=== PATIENT | male | born 1935 | race Caucasian/White ===

== ENCOUNTER 2018-04-25 21:20 | Emergency (ER) | payer OTHER ==
--- NOTE | 2018-04-25 21:27 | PDOC ---
History of Present Illness - History of Present Illness Initial Comments: 04/25/18 22:06 The patient is a 83 year old male presents to the emergency department with urinary retention. The patient reports he underwent cardiac ablation at [facility] yesterday, for which he was placed a urinary catheter. The patient reports the thacker was removed earlier today, and since then he hasnt urinated. Denies back pain. PAST MEDICAL HISTORY: Green laser surgery for prostatic hypertrophy, Cardiac ablation (2 days ago), DM, Afib/flutter (prior to ablation procedure) PAST SURGICAL HISTORY: Laser surgery and cardiac ablation. FAMILY HISTORY: no pertinent history SOCIAL HISTORY: Pt lives with family and is employed. MEDICATIONS: reviewed ALLERGIES: As per nursing notes General: No fevers or chills, no weakness, no weight loss HEENT: No change in vision. No sore throat,. No ear pain CardioVascular: No chest pain or shortness of breath Respiratory:No cough, or wheezing. Gastrointestinal: no nausea, vomiting, diarrhea or constipation, No rectal bleeding Genitourinary: +urinary retention. No dysuria, hematuria, or frequency Musculoskeletal: No joint or muscle pain or swelling Neurologic: No headache, vertigo, dizziness or loss of consciousness Psychiatric: nor depression Skin: No rashes or easy bruising Endocrine: no increased thirst or abnormal weight change Allergic: no skin or latex allergy All other systems reviewed and normal GENERAL: The patient is awake, alert, and fully oriented, in no acute distress. HEAD: Normal with no signs of trauma. EYES: Pupils equal, round and reactive to light, extraocular movements intact, sclera anicteric, conjunctiva clear. ABD: No CVA or Flank tenderness. EXTREMITIES: Normal range of motion, no edema. NEUROLOGICAL: Normal speech, normal gait. PSYCH: Normal mood, normal affect. SKIN: Warm, Dry, normal turgor, no rashes or lesions noted. Documentation prepared by Evangelina Dickerson, acting as director biomedical engineering for Marcelino Joshi MD. <Evangelina Dickerson - Last Filed: 04/25/18 22:06> - General History Source: Patient Exam Limitations: No Limitations - History of Present Illness Initial Comments: A portion of this note was documented by scribe services under my direction. I have reviewed the details of the note, within reason, and agree with the documentation with the following case summary and management plan written by me. Patient treated in the ED. Nursing notes are reviewed and incorporated into the medical decision-making. Vital signs reviewed. Assessment and plan: This is an 83-year-old male who comes in complaining of urinary retention. Patient had a cardiac ablation yesterday and had a Thacker overnight Thacker was removed this morning the patient did not P before going home and patient is been unable to eat since the Thacker was removed. A Thacker was placed with return of 600 mL of urine patient started on Cipro and well hollow up with his doctor on Friday. Patient discharged home with a leg bag 04/25/18 22:23 <Marcelino Joshi I - Last Filed: 04/25/18 22:24> - General Chief Complaint: Urinary Problem Stated Complaint: URINARY RETENTION Time Seen by Provider: 04/25/18 21:24 Past History <Evangelina Dickerson - Last Filed: 04/25/18 22:06> - Past Medical History Cardiac Disorders: Yes (A-FIB) Diabetes: Yes (NIDDM) Disorders: Yes (BPH) Hypercholesterolemia: Yes - Surgical History Cardiac Surgery: Yes (CARDIAC ABLATION JAN 2106) - Suicide/Smoking/Psychosocial Hx Smoking Status: No Smoking History: Never smoked Number of Cigarettes Smoked Daily: 0 Hx Alcohol Use: No Drug/Substance Use Hx: No Substance Use Type: None <Marcelino Joshi I - Last Filed: 04/25/18 22:24> - Past Medical History Allergies/Adverse Reactions: Allergies Allergy/AdvReac Type Severity Reaction Status Date / Time No Known Allergies Allergy Verified 07/13/11 19:51 Home Medications: Ambulatory Orders Glipizide [Glucotrol] 10 mg PO BID 07/13/11 Metformin HCl 1,000 mg PO BID 07/13/11 Atorvastatin Ca [Lipitor] 10 mg PO HS 01/27/16 Cholecalciferol (Vitamin D3) [Vitamin D3 -] 1,000 unit PO DAILY 01/27/16 Cyanocobalamin [Vitamin B12 -] 1,000 mcg PO DAILY 01/27/16 Metoprolol Succinate [Toprol Xl -] 25 mg PO DAILY 01/27/16 Rivaroxaban [Xarelto -] 20 mg PO DAILY 01/27/16 Ciprofloxacin HCl [Cipro] 500 mg PO BID #10 tablet 04/25/18 Insulin Detemir [Levemir Flextouch] 8 unit SQ HS 04/25/18 *Physical Exam - Vital Signs Last Vital Signs Temp Pulse Resp BP Pulse Ox 98.3 F 104 H 20 127/76 100 04/25/18 21:26 04/25/18 21:26 04/25/18 21:26 04/25/18 21:26 04/25/18 21:26 <Evangelina Dickerson - Last Filed: 04/25/18 22:06> Moderate Sedation - Procedure Monitoring Vital Signs: Procedure Monitoring Vital Signs Temperature 98.3 F 04/25/18 21:26 Pulse Rate 104 H 04/25/18 21:26 Respiratory Rate 20 04/25/18 21:26 Blood Pressure 127/76 04/25/18 21:26 O2 Sat by Pulse Oximetry (%) 100 04/25/18 21:26 <Evangelina Dickerson - Last Filed: 04/25/18 22:06> *DC/Admit/Observation/Transfer <Evangelina Dickerson - Last Filed: 04/25/18 22:06> - Discharge Dispostion Decision to Admit order: No <Marcelino Joshi I - Last Filed: 04/25/18 22:24> Diagnosis at time of Disposition: Urinary retention - Discharge Dispostion Disposition: HOME Condition at time of disposition: Stable - Prescriptions Prescriptions: Ciprofloxacin HCl [Cipro] 500 mg PO BID #10 tablet - Patient Instructions Printed Discharge Instructions: How to Care for Your Thacker Catheter -- Male Additional Instructions: Wear the leg bag until you see your doctor on Friday follow-up with your doctor on Friday. Take Cipro 1 tablet twice a day for 5 days to prevent or treat any urinary tract infection. Return to the emergency department immediately with ANY new, persistent or worsening symptoms. Continue any medications as previously prescribed by your physician. You should follow up with your primary doctor as soon as possible regarding today's emergency department visit. . Please make sure your doctor reviews the results of your emergency evaluation. Thank you for coming to the Emergency Department today for your care. It was a pleasure to see you today. Please note that your evaluation is INCOMPLETE until you follow-up with your doctor.
[2018-04-25 21:29] VITALS: BP 127/76; PULSE 104; TEMP 98.3; BMI 25.7
[2018-04-25] MEDS ORDERED: CIPROFLOXACIN 500 MG TABLET (RESTRICTED TO ID) PO ONE (22:03)
[2018-04-25 22:07] LABS: PH,URINE 5.5 (4.5-8); URINE APPEARANCE Clear; URINE BILIRUBIN Negative (NEGATIVE); URINE COLOR Yellow; URINE GLUCOSE (UA) 2+ (NEGATIVE); URINE KETONE Trace (NEGATIVE); URINE LEUK ESTERASE Negative (NEGATIVE); URINE NITRITE Negative (NEGATIVE); URINE PROTEIN 1+ (NEGATIVE); URINE UROBILINOGEN 0.2 (0.2-1.0)
[2018-04-25] MEDS ORDERED: CIPROFLOXACIN 250 MG TABLET (RESTRICTED TO ID) PO ONE (22:08)
[2018-04-25 22:24] LABS: URINE BACTERIA 2+ /hpf (NEGATIVE); URINE RBC >100 /hpf (0-3)
== END 2018-04-25 22:12 | disposition home or self-care (01) ==
LOC: FER 21:20
PROC: 0T9B70Z Drainage of Bladder with Drainage Device, Via Natural or Artificial Opening (ICD-10-PCS; principal; 2018-04-25)
DX: R33.9 Retention of urine, unspecified (principal); I48.91 Unspecified atrial fibrillation; E11.9 Type 2 diabetes mellitus without complications; N40.0 Benign prostatic hyperplasia without lower urinary tract symptoms; E78.00 Pure hypercholesterolemia, unspecified
CPT/HCPCS: 81003; 81015; 87086; 87186; 99282-25

== ENCOUNTER 2018-04-28 05:48 | Emergency (ER) | payer OTHER ==
--- NOTE | 2018-04-28 05:51 | PDOC ---
History of Present Illness - General Chief Complaint: Urinary Problem Stated Complaint: URINARY RETENTION Time Seen by Provider: 04/28/18 05:51 - History of Present Illness Initial Comments: 04/28/18 06:24 This 83-year-old man with a history of A. fib/HLD/DM/prostatic hypertrophy presents with recurrent urinary retention. Patient had a cardiac ablation procedure on 04/24. He presented to the ER here with urinary retention following day and catheter was placed. He was seen in his urologist's office yesterday and catheter was removed. The patient states that he subsequently urinated a small amount in the afternoon (a little over 12 hours prior to presentation now) , but had not urinated since then. Patient has had progressive discomfort through the night. No history of hematuria/fever/vomiting. Past History - Past Medical History Allergies/Adverse Reactions: Allergies Allergy/AdvReac Type Severity Reaction Status Date / Time No Known Allergies Allergy Verified 04/28/18 05:49 Home Medications: Ambulatory Orders Glipizide [Glucotrol] 10 mg PO BID 07/13/11 Metformin HCl 1,000 mg PO BID 07/13/11 Atorvastatin Ca [Lipitor] 10 mg PO HS 01/27/16 Cholecalciferol (Vitamin D3) [Vitamin D3 -] 1,000 unit PO DAILY 01/27/16 Cyanocobalamin [Vitamin B12 -] 1,000 mcg PO DAILY 01/27/16 Metoprolol Succinate [Toprol Xl -] 25 mg PO DAILY 01/27/16 Rivaroxaban [Xarelto -] 20 mg PO DAILY 01/27/16 Ciprofloxacin HCl [Cipro] 500 mg PO BID #10 tablet 04/25/18 Insulin Detemir [Levemir Flextouch] 8 unit SQ HS 04/25/18 Cardiac Disorders: Yes (A-FIB) COPD: No Diabetes: Yes (NIDDM) Disorders: Yes (BPH) Hypercholesterolemia: Yes - Surgical History Cardiac Surgery: Yes (CARDIAC ABLATION JAN 2106) - Suicide/Smoking/Psychosocial Hx Smoking Status: No Smoking History: Never smoked Have you smoked in the past 12 months: No Number of Cigarettes Smoked Daily: 0 Hx Alcohol Use: No Drug/Substance Use Hx: No Substance Use Type: None Review of Systems - Review of Systems Able to Perform ROS?: Yes Comments:: 12 point review of systems is negative except for what is noted in the history of present illness *Physical Exam - Physical Exam Comments: GENERAL: Elderly man, alert and oriented 3, in mild distress secondary to lower abdominal distention HEAD: Normal with no signs of trauma. EYES: PERRLA, EOMI, sclera anicteric, conjunctiva clear. ABDOMEN:.normal bowel sounds. Moderate lower abdominal distention No guarding or rebound.No masses EXTREMITIES: Normal range of motion, no edema. No clubbing or cyanosis. No erythema, or tenderness. NEUROLOGICAL: Cranial nerves II through XII grossly intact. Normal speech. No focal neurological deficits. MUSCULOSKELETAL: Back non-tender to palpation, no CVA tenderness SKIN: Warm, Dry, normal turgor, no rashes or lesions noted. Progress Note - Progress Note Progress Note: Under sterile technique,16F thacker urinary catheter was placed by the nursing staff with subsequent free flow of clear, arias urine( total amount drained = 600ml). Patient reports marked relief in his symptoms after drainage of urine. Urine sample sent for culture and sensitivity. Repeat heart rate measured:120/min. Patient denies chest pain/shortness of breath/lightheadedness. Patient will be discharged with instructions to follow-up with his urologist today(to call the office to arrange appointment for removal of catheter). He also should call his under baster to arrange follow-up. After the cardiac ablation procedure (which was performed because patient's resting heart rate was 120s/minute), follow-up was scheduled for May 18. Patient should inform his under baster about tachycardia today. It was explained to the patient that he had some physiologic reasons for tachycardia such as urinary retention and the insertion of the catheter. However, his under baster may want to see him sooner than 3 weeks from now. The patient will be called if urine sample is positive for UTI Meanwhile, patient should return to the emergency room if he develops abdominal pain/fever/vomiting. *DC/Admit/Observation/Transfer Diagnosis at time of Disposition: Urinary retention - Discharge Dispostion Disposition: HOME Condition at time of disposition: Stable - Referrals - Patient Instructions Printed Discharge Instructions: DI for Urinary Retention in Men Additional Instructions: Keep urinary catheter in place Continue take medications as prescribed Call Dr. Lyons's office later today and follow-up as determined Return to ER if you have abdominal pain/fever /chills/vomiting - Post Discharge Activity
[2018-04-28 05:55] VITALS: BP 113/68; TEMP 98.7; BMI 25.8
[2018-04-28 06:16] VITALS: PULSE 120
== END 2018-04-28 06:18 | disposition home or self-care (01) ==
LOC: FER 05:48
PROC: 0T9B70Z Drainage of Bladder with Drainage Device, Via Natural or Artificial Opening (ICD-10-PCS; principal; 2018-04-28)
DX: R33.9 Retention of urine, unspecified (principal); I48.91 Unspecified atrial fibrillation; E78.5 Hyperlipidemia, unspecified; E11.9 Type 2 diabetes mellitus without complications; N40.0 Benign prostatic hyperplasia without lower urinary tract symptoms
CPT/HCPCS: 51702; 87086; 99282-25